=== PATIENT | male | born 1960 | race Hispanic/Latino ===

== ENCOUNTER 2024-05-09 09:45 | Day surgery (SDC) | payer BC ==
[2024-05-03 12:29] LABS: BASOPHILS # (AUTO) 0.02 K/uL (0.00-0.20); BASOPHILS % (AUTO) 0.3 % (0.0-5.0); EOSINOPHILS # (AUTO) 0.05 K/uL (0.00-0.70); EOSINOPHILS % (AUTO) 0.7 % (0.0-8.0); HEMATOCRIT 43.2 % (42-54); IMMATURE GRANULOCYTE ABSOLUTE 0.03 K/uL (0-1); LYMPHOCYTES # (AUTO) 1.7 K/uL (1.0-4.8); LYMPHOCYTES % (AUTO) 25.7 % (21.0-51.0); MEAN CORPUSCULAR HEMOGLOBIN 29.4 pg (27.0-33.0); MEAN CORPUSCULAR HGB CONC 33.1 g/dL (32.0-36.0); MEAN CORPUSCULAR VOLUME 88.9 fL (79-99); MONOCYTES # (AUTO) 0.7 K/uL (0.1-1.0); MONOCYTES % (AUTO) 9.7 % (3.0-13.0); NEUTROPHILS # (AUTO) 4.2 K/uL (1.8-7.7); NEUTROPHILS % (AUTO) 63.2 % (40.0-77.0); PLATELET COUNT (AUTO) 210 K/uL (130-400); RED BLOOD CELL COUNT(AUTO) 4.86 MIL/uL (4.50-6.20); RED CELL DISTRIBUTION WIDTH 13.1 % (11.0-15.5); WHITE BLOOD COUNT (AUTO) 6.7 K/uL (4.8-10.8)
[2024-05-03 12:42] VITALS: BP 196/94; PULSE 49; RESP 16
[2024-05-03 12:50] LABS: INR 1.08 (0.85-1.15); PROTHROMBIN TIME 11.6 SEC (9.6-11.6)
[2024-05-03 12:51] LABS: PARTIAL THROMBOPLASTIN TIME 28.8 SEC (26.3-35.5)
[2024-05-03 13:01] LABS: ADD UA MICROSCOPIC YES; APPEARANCE,URINE TURBID (CLEAR); BACTERIA,URINE MOD /HPF (None Seen); BILIRUBIN,URINE NEGATIVE (NEGATIVE); COLOR,URINE LIGHT-ORANGE (YELLOW); GLUCOSE, URINE (UA) NEGATIVE (NEGATIVE); KETONES,URINE NEGATIVE (NEGATIVE); LEUKOCYTE ESTERASE ,URINE 500 Leu/uL (NEGATIVE); MUCUS,URINE MANY LPF (None Seen); NITRATE,URINE NEGATIVE (NEGATIVE); OCCULT BLOOD,URINE LARGE (NEGATIVE); PROTEIN,URINE 100 mg/dL (NEGATIVE); RBC,URINE TNTC /HPF (0-1); SQUAMOUS EPITHELIAL CELL,UR FEW /HPF (0-2); UROBILINOGEN,URINE 0.2 mg/dL (0.2-1.0); WBC CLUMP FEW /HPF (0-1); WBC,URINE TNTC /HPF (0-1)
[2024-05-03 14:29] LABS: CREATININE 0.9 mg/dL (0.5-1.3); POTASSIUM 3.9 mmol/L (3.5-5.1)
[~2024-05-09] VITALS: Ht 177.8 cm; Wt 89.6 kg
[2024-05-09] VITALS (13 sets, daily range): BP systolic 123–152; BP diastolic 70–92; PULSE 55–79; RESP 15–17
[~2024-05-09 09:45] MED LIST: CHOL100046 PO; LOSA100T59 PO; OMEGA 3 PO
[2024-05-09] MEDS: LACTATED RINGERS 1000ML 1,000 ML IV ONE (10:46)
[2024-05-09] MEDS ORDERED: LIDOCAINE PF 100MG/5ML (2%) SYRINGE 5ML ONE (11:44)
[2024-05-09] MEDS ORDERED: FENTANYL CITRATE PF 50 MCG/1 ML 2ML VIAL ONE ×2 (11:45→12:53)
[2024-05-09] MEDS ORDERED: PROPOFOL 10 MG/ML 20ML VIAL IV ONE (11:45)
[2024-05-09] MEDS ORDERED: MIDAZOLAM HCL 1 MG/ML 2ML VIAL ONE (11:45)
[2024-05-09] MEDS: CEFTRIAXONE 1G VIAL ONE (11:52)
[2024-05-09] MEDS ORDERED: LEVO-70 PO (13:03)
[2024-05-09] MEDS ORDERED: ONDANSETRON 4MG INJ ONE (13:09)
[2024-05-09] MEDS ORDERED: BACITRACIN 28.4 GM OINT TP ONE (14:19)
[2024-05-09] MEDS ORDERED: TRAM50TA4 PO (14:23)
== END 2024-05-09 14:55 | disposition home or self-care (01) ==
LOC: DAH 09:45
PROVIDERS: ATTEND Urology
DX: N40.1 Benign prostatic hyperplasia with lower urinary tract symptoms (principal); R33.9 Retention of urine, unspecified; Z79.01 Long term (current) use of anticoagulants; Z79.899 Other long term (current) drug therapy
CPT/HCPCS: 80048; 85025; 85610; 85730; 87086 ×2; 87186; 81001; 36415; 71045; 93005; 52648; A6260; A4663; J7120 ×2; A4452; A4354; J3010 ×2; J2001; J0696; J2250; J2704; J2405; A4358; A4930; A4215; A4223; A4222; A4221; A4600; J3490